=== PATIENT | male | born 1965 | race American Indian/Alaskan Native ===

== ENCOUNTER 2022-03-29 18:30 | Emergency (ER) | payer SELFPAY ==
[2022-03-30] MEDS ORDERED: SODIUM CHLORIDE 0.9% 1000 ML 1,000 ML IV ONE ×2 (00:27→05:55)
[2022-03-30] MEDS ORDERED: ONDANSETRON 4 MG/2 ML INJ IV ONE (00:36)
[2022-03-30] MEDS ORDERED: fentaNYL 100 MCG/2 ML INJ IV ONE ×2 (00:36→04:15)
--- NOTE | 2022-03-30 00:40 | Emergency Department Report ---
HPI - HPI HPI: Room 5 The patient is a 57-year-old male present with chief complaint of headache. Patient states for the past 2 to 3 days he has had intermittent occipital headache radiating down his neck into both of his shoulders. Patient denies fever at home but admits to chills. Patient denies any preceding trauma. Patient denies nausea/vomiting. Patient currently gives his headache a score of 10/10. Patient states his neck became stiff over the past 2 days. Patient states last time he took Tylenol was over 24 hours ago <FANNIE VELAZCO - Last Filed: 03/30/22 05:58> <ANT NIEVES - Last Filed: 03/30/22 11:57> - General Chief Complaint: Headache Time Seen by Provider: 03/30/22 00:28 ED Past Medical Hx - Past Medical History Previous Medical History?: No - Surgical History Past Surgical History?: No - Family History Family history: no significant - Social History Smoking Status: Never Smoker Substance Use Type: None (Denies illicit drug use) <FANNIE VELAZCO - Last Filed: 03/30/22 05:58> <ANT NIEVES - Last Filed: 03/30/22 11:57> - Medications Home Medications: Home Medications Medication Instructions Recorded Confirmed Last Taken Type Butalb/Acetamin/Caff 50-325-40 2 tab PO Q8HR PRN #20 tablet 03/30/22 Unknown Rx [Fioricet 50-325-40] ED Review of Systems ROS: Stated complaint: SEVERE HEADACHE GOING DOWN SHOULDERS Other details as noted in HPI Constitutional: chills. denies: fever Eyes: denies: eye pain ENT: denies: throat pain Respiratory: no symptoms reported Cardiovascular: denies: chest pain Endocrine: no symptoms reported Gastrointestinal: denies: nausea, vomiting Genitourinary: denies: dysuria Musculoskeletal: myalgia Neurological: headache <FANNIE VELAZCO - Last Filed: 03/30/22 05:58> ROS: Stated complaint: SEVERE HEADACHE GOING DOWN SHOULDERS Other details as noted in HPI <ANT NIEVES - Last Filed: 03/30/22 11:57> Physical Exam - Physical Exam Vital Signs: Vital Signs 03/29/22 21:50 Temperature 98.8 F Pulse Rate 110 H Respiratory 16 Rate Blood Pressure 133/83 O2 Sat by Pulse 99 Oximetry Physical Exam: GENERAL: The patient is well-developed well-nourished male sitting on stretcher not appearing to be in acute distress. [] HEENT: Normocephalic. Atraumatic. Extraocular motions are intact. Patient has moist mucous membranes. NECK: Supple. There is nuchal rigidity CHEST/LUNGS: Clear to auscultation. There is no respiratory distress noted. HEART/CARDIOVASCULAR: Regular. There is no tachycardia. There is no gallop rub or murmur. ABDOMEN: Abdomen is soft, nontender. Patient has normal bowel sounds. There is no abdominal distention. SKIN: There is no rash. There is no edema. There is no diaphoresis. NEURO: The patient is awake, alert, and oriented. The patient is cooperative. The patient has no focal neurologic deficits. The patient has normal speech and gait. Cranial nerves II through XII grossly intact. GCS 15 MUSCULOSKELETAL: There is no evidence of acute injury. <FANNIE VELAZCO - Last Filed: 03/30/22 05:58> - Physical Exam Vital Signs: Vital Signs 03/29/22 03/30/22 03/30/22 21:50 00:45 01:45 Temperature 98.8 F Pulse Rate 110 H Respiratory 16 20 19 Rate Blood Pressure 133/83 Blood Pressure [Right] O2 Sat by Pulse 99 Oximetry 03/30/22 03/30/22 03/30/22 02:31 02:46 03:00 Temperature Pulse Rate 93 H 92 H 87 Respiratory 25 H 22 25 H Rate Blood Pressure 128/76 131/80 Blood Pressure [Right] O2 Sat by Pulse 99 99 99 Oximetry 03/30/22 03/30/22 03/30/22 03:16 03:30 03:46 Temperature Pulse Rate 81 91 H 96 H Respiratory 18 22 26 H Rate Blood Pressure 124/79 126/76 126/76 Blood Pressure [Right] O2 Sat by Pulse 98 99 Oximetry 03/30/22 03/30/22 03/30/22 04:00 04:16 04:30 Temperature Pulse Rate 96 H 89 91 H Respiratory 11 L 19 21 Rate Blood Pressure 126/76 122/75 122/75 Blood Pressure [Right] O2 Sat by Pulse 98 98 Oximetry 03/30/22 03/30/22 03/30/22 04:46 05:00 05:16 Temperature Pulse Rate 88 85 85 Respiratory 18 18 18 Rate Blood Pressure 120/70 120/70 114/72 Blood Pressure [Right] O2 Sat by Pulse 96 97 96 Oximetry 03/30/22 03/30/22 03/30/22 05:30 05:46 05:59 Temperature 98.0 F Pulse Rate 82 81 96 H Respiratory 18 18 20 Rate Blood Pressure 114/72 120/73 Blood Pressure 126/76 [Right] O2 Sat by Pulse 98 99 99 Oximetry 03/30/22 03/30/22 03/30/22 06:00 06:16 06:20 Temperature 98.7 F Pulse Rate 83 83 83 Respiratory 19 18 18 Rate Blood Pressure 120/73 112/67 Blood Pressure 112/67 [Right] O2 Sat by Pulse 100 98 98 Oximetry 03/30/22 03/30/22 03/30/22 06:21 06:30 06:46 Temperature 98.7 F Pulse Rate 83 78 105 H Respiratory 18 18 15 Rate Blood Pressure 112/67 112/67 119/72 Blood Pressure [Right] O2 Sat by Pulse 98 100 98 Oximetry 03/30/22 03/30/22 03/30/22 07:00 07:16 07:30 Temperature Pulse Rate 81 84 83 Respiratory 25 H 20 18 Rate Blood Pressure 119/72 132/74 132/74 Blood Pressure [Right] O2 Sat by Pulse 99 99 100 Oximetry 03/30/22 03/30/22 03/30/22 07:46 08:00 08:16 Temperature Pulse Rate 86 83 114 H Respiratory 17 17 25 H Rate Blood Pressure 128/76 128/76 138/87 Blood Pressure [Right] O2 Sat by Pulse 100 100 Oximetry 03/30/22 03/30/22 03/30/22 08:30 08:46 10:32 Temperature Pulse Rate 92 H 93 H Respiratory 22 19 Rate Blood Pressure 138/87 138/87 126/71 Blood Pressure [Right] O2 Sat by Pulse 100 Oximetry 03/30/22 03/30/22 03/30/22 10:46 11:00 11:16 Temperature Pulse Rate Respiratory Rate Blood Pressure 131/75 138/87 132/78 Blood Pressure [Right] O2 Sat by Pulse 100 91 99 Oximetry <ANT NIEVES - Last Filed: 03/30/22 11:57> ED Course Vital Signs 03/29/22 21:50 Temperature 98.8 F Pulse Rate 110 H Respiratory 16 Rate Blood Pressure 133/83 O2 Sat by Pulse 99 Oximetry - Reevaluation(s) Reevaluation #1: 03/30/22 06:02 Patient will be signed out to oncoming ED physician to follow-up on repeat lactic acid. Patient states his pain is decreased to a 4/10 after medication. CSF within normal limits and no evidence of meningitis. If repeat lactic acid normal I suspect the patient will be discharged home. If lactic acid is abnormal the patient should be admitted for observation <FANNIE VELAZCO - Last Filed: 03/30/22 05:58> Vital Signs 03/29/22 03/30/22 03/30/22 21:50 00:45 01:45 Temperature 98.8 F Pulse Rate 110 H Respiratory 16 20 19 Rate Blood Pressure 133/83 Blood Pressure [Right] O2 Sat by Pulse 99 Oximetry 03/30/22 03/30/22 03/30/22 02:31 02:46 03:00 Temperature Pulse Rate 93 H 92 H 87 Respiratory 25 H 22 25 H Rate Blood Pressure 128/76 131/80 Blood Pressure [Right] O2 Sat by Pulse 99 99 99 Oximetry 03/30/22 03/30/22 03/30/22 03:16 03:30 03:46 Temperature Pulse Rate 81 91 H 96 H Respiratory 18 22 26 H Rate Blood Pressure 124/79 126/76 126/76 Blood Pressure [Right] O2 Sat by Pulse 98 99 Oximetry 03/30/22 03/30/22 03/30/22 04:00 04:16 04:30 Temperature Pulse Rate 96 H 89 91 H Respiratory 11 L 19 21 Rate Blood Pressure 126/76 122/75 122/75 Blood Pressure [Right] O2 Sat by Pulse 98 98 Oximetry 03/30/22 03/30/22 03/30/22 04:46 05:00 05:16 Temperature Pulse Rate 88 85 85 Respiratory 18 18 18 Rate Blood Pressure 120/70 120/70 114/72 Blood Pressure [Right] O2 Sat by Pulse 96 97 96 Oximetry 03/30/22 03/30/22 03/30/22 05:30 05:46 05:59 Temperature 98.0 F Pulse Rate 82 81 96 H Respiratory 18 18 20 Rate Blood Pressure 114/72 120/73 Blood Pressure 126/76 [Right] O2 Sat by Pulse 98 99 99 Oximetry 03/30/22 03/30/22 03/30/22 06:00 06:16 06:20 Temperature 98.7 F Pulse Rate 83 83 83 Respiratory 19 18 18 Rate Blood Pressure 120/73 112/67 Blood Pressure 112/67 [Right] O2 Sat by Pulse 100 98 98 Oximetry 03/30/22 03/30/22 03/30/22 06:21 06:30 06:46 Temperature 98.7 F Pulse Rate 83 78 105 H Respiratory 18 18 15 Rate Blood Pressure 112/67 112/67 119/72 Blood Pressure [Right] O2 Sat by Pulse 98 100 98 Oximetry 03/30/22 03/30/22 03/30/22 07:00 07:16 07:30 Temperature Pulse Rate 81 84 83 Respiratory 25 H 20 18 Rate Blood Pressure 119/72 132/74 132/74 Blood Pressure [Right] O2 Sat by Pulse 99 99 100 Oximetry 03/30/22 03/30/22 03/30/22 07:46 08:00 08:16 Temperature Pulse Rate 86 83 114 H Respiratory 17 17 25 H Rate Blood Pressure 128/76 128/76 138/87 Blood Pressure [Right] O2 Sat by Pulse 100 100 Oximetry 03/30/22 03/30/22 03/30/22 08:30 08:46 10:32 Temperature Pulse Rate 92 H 93 H Respiratory 22 19 Rate Blood Pressure 138/87 138/87 126/71 Blood Pressure [Right] O2 Sat by Pulse 100 Oximetry 03/30/22 03/30/22 03/30/22 10:46 11:00 11:16 Temperature Pulse Rate Respiratory Rate Blood Pressure 131/75 138/87 132/78 Blood Pressure [Right] O2 Sat by Pulse 100 91 99 Oximetry - Reevaluation(s) Reevaluation #2: 03/30/22 11:56 This patient assigned to me at shift change at 6 AM with pending second or repeated lactic acid. Initial lactic acid was 2.1 which was repeated and resulted to be 1.0. With this improvement this patient is ready to be discharged home on Fioricet and close follow-up with his primary doctor. <ANT NIEVES - Last Filed: 03/30/22 11:57> - Lumbar Puncture Consent Obtained: verbal consent Time Out Performed: Yes Indication for Procedure: headache Patient Position: left lateral decubitus Skin Prep: Povidone-Iodine 1% Local Anesthetic Used: Lidocaine 1% (With the pain) Amount of anesthesia used (mls): 3 Spinal Needle Gauge: 20G Spinal Needle Length: 3.5in Interspace Used: L4-L5 Fluid Initially Obtained: clear Complications: none Patient Tolerated Procedure: well, no complications <FANNIE VELAZCO - Last Filed: 03/30/22 05:58> ED Medical Decision Making - Lab Data Result diagrams: 03/30/22 00:47 03/30/22 00:47 - Radiology Data Radiology results: report reviewed (CT head), image reviewed (CT head) [place] [address] Cat Scan Report Signed Patient: CONCHA JO MR#: [id number] 5 : 1965 Acct:[id number] Age/Sex: 57 / M ADM Date: 03/29/22 Loc: ED Attending Dr: Ordering Physician: FANNIE VELAZCO MD Date of Service: 03/30/22 Procedure(s): CT head/brain wo con Accession Number(s): [id number] cc: FANNIE VELAZCO MD CT head without contrast INDICATION : Headache TECHNIQUE: Axial imaging performed from the skull apex through the skull base without the use of contrast. All CT examinations performed at this facility utilize dose modulation, iterative reconstruction or weight-based dosing, when appropriate, to reduce radiation dose to as low as reasonably achievable. COMPARISON: None FINDINGS: No acute intracranial hemorrhage or parenchymal abnormality. Ventricles are normal in size and appear symmetric. Soft tissues including the orbits appear normal. No acute osseous a bnormality. Sinuses and mastoid air cells are clear. IMPRESSION: No acute abnormality. Signer Name: Obed Antonio MD Signed: 03/30/2022 1:20 AM Workstation Name: [id number] Transcribed By: BC Dictated By: Obed Antonio MD Electronically Authenticated By: Obed Antonio MD Signed Date/Time: 03/30/22 012 DD/ 7 TD/TT: - Differential Diagnosis Meningitis, meningismus, ICH, tension headache <FANNIE VELAZCO - Last Filed: 03/30/22 05:58> - Lab Data Result diagrams: 03/30/22 00:47 03/30/22 00:47 <EZEQUIELTERENCECRISTINAOSWALD FABIÁN - Last Filed: 03/30/22 11:57> Critical care attestation.: If time is entered above; I have spent that time in minutes in the direct care of this critically ill patient, excluding procedure time. <CASSIE VELAZCOENEDELIA Maldonado - Last Filed: 03/30/22 05:58> Critical care attestation.: If time is entered above; I have spent that time in minutes in the direct care of this critically ill patient, excluding procedure time. <ANT NIEVES - Last Filed: 03/30/22 11:57> ED Disposition <CASSIE VELAZCOKE Erica - Last Filed: 03/30/22 05:58> Is pt being admited?: No Does the pt Need Aspirin: No Time of Disposition: 11:57 <JAELYNHannahANT - Last Filed: 03/30/22 11:57> Clinical Impression: Headache Qualifiers: Headache type: unspecified Headache chronicity pattern: unspecified pattern Intractability: not intractable Qualified Code(s): R51.9 - Headache, unspecified Disposition: 01 HOME / SELF CARE / HOMELESS Condition: Stable Instructions: General Headache Without Cause, Lumbar Puncture, Care After Additional Instructions: Return to the emergency department should you develop worsening symptoms, inability to tolerate food or liquids, high fever or any other concerns Prescriptions: Butalb/Acetamin/Caff 50-325-40 [Fioricet 50-325-40] 2 tab PO Q8HR PRN #20 tablet PRN Reason: Headache Referrals: PRIMARY CARE, [Primary Care Provider] - 3-5 Days MILAGRO DORAN MD [Staff Physician] - 3-5 Days
[2022-03-30 01:20] LABS: BUN/Creatinine Ratio 20; Blood Urea Nitrogen 18 mg/dL (9-20); Calcium 8.8 mg/dL (8.4-10.2); Hemolysis Index 8
[2022-03-30 01:21] LABS: Hematocrit 38.3 % (35.5-45.6); Hemoglobin 12.7 gm/dl (11.8-15.2); Mean Corpuscular HGB Conc 33 % (32-34); Mean Corpuscular Volume 98 fl (84-94); Platelet Count 388 K/mm3 (140-440); Red Blood Count 3.89 M/mm3 (3.65-5.03); Red Cell Distribution Width 12.8 % (13.2-15.2)
--- NOTE | 2022-03-30 01:24 | Cat Scan Report ---
CT head without contrast INDICATION : Headache TECHNIQUE: Axial imaging performed from the skull apex through the skull base without the use of con trast. All CT examinations performed at this facility utilize dose modulation, iterative reconstruct ion or weight-based dosing, when appropriate, to reduce radiation dose to as low as reasonably achiev able. COMPARISON: None FINDINGS: No acute intracranial hemorrhage or parenchymal abnormality. Ventricles are normal in si ze and appear symmetric. Soft tissues including the orbits appear normal. No acute osseous abnorm ality. Sinuses and mastoid air cells are clear. IMPRESSION: No acute abnormality. Signer Name: Obed Antonio MD Signed: 03/30/2022 1:20 AM Workstation Name: [id number]
[2022-03-30 01:42] LABS: INR 1.07 (0.87-1.13)
[2022-03-30 01:43] LABS: Partial Thromboplastin Time 40.2 Sec. (24.2-36.6)
[2022-03-30 01:53] LABS: Basophils % (Manual) 0 % (0.0-1.8); Platelet Estimate Consistent w Auto; Total Cells Counted 100
[2022-03-30] MEDS ORDERED: LIDOCAINE PF 100 MG/5 ML (CARDIAC SYRINGE) IV ONE (03:45)
[2022-03-30] MEDS ORDERED: LIDOCAINE 1%/EPINEPHRINE 1:100,000 VIAL (20 ML) INFILTRATI NR (03:45)
[2022-03-30] MEDS ORDERED: LIDOCAINE-MPF (1%) 10 MG/1 ML VIAL 5 ML INFILTRATI ONE (03:59)
[2022-03-30] MEDS ORDERED: cefTRIAXone/NS 2 GM/100 ML 2 GM/100 ML BAG IV ONE (04:00)
[2022-03-30] MEDS ORDERED: fentaNYL 100 MCG/2 ML INJ ONE (04:15)
[2022-03-30 04:30] LABS: Glucose,CSF 78 mg/dL
[2022-03-30 05:17] LABS: Appearance,CSF Clear; Red Blood Cell,CSF 4.4 /mm3 (0-0); White Blood Cell,CSF 0 /mm3 (1-10)
[2022-03-30 05:18] LABS: Appearance,CSF Clear; Red Blood Cell,CSF 0 /mm3 (0-0); White Blood Cell,CSF 0 /mm3 (1-10)
[2022-03-30 06:13] LABS: Basophils CSF 0 %
[2022-03-30 06:14] LABS: Basophils CSF 0 %
[2022-03-30 12:05] VITALS: BP 125/78
== END 2022-03-30 12:08 | disposition home or self-care (01) ==
LOC: ED 18:30
DX: R51.9 Headache, unspecified (principal); R79.1 Abnormal coagulation profile; Z79.899 Other long term (current) drug therapy
CPT/HCPCS: 36415; 62270; 70450; 80048; 82140; 82947; 84160; 85007; 85025; 85610; 85730; 87040; 87116; 89051; 96361; 96374; 96375; 96376; 99284; J0696; J2001; J2405; J3010; J3490; J7030